=== PATIENT | female | born 1960 | race Caucasian/White ===

== ENCOUNTER 2020-10-06 10:22 | Outpatient (CLI) | payer OTHER, SELFPAY ==
--- NOTE | ~2020-10-06 | XR_ITS ---
EXAMINATION: XR chest 2V 10/06/2020 10:53 INDICATION: Shortness of breath PROCEDURE: 2 view chest COMPARISON: 07/31/2012 FINDINGS: The lungs are clear. The cardiomediastinal silhouette is within normal limits. There are no pleural effusions. There is no pneumothorax suspected. IMPRESSION: 1: NO ACUTE CARDIOPULMONARY DISEASE. Reviewed, dictated and finalized at location B.
[2020-10-06 11:08] LABS: Potassium 3.8 mmol/L (3.4-5.0)
[2020-10-06 11:13] LABS: Alanine Aminotransferase 30 U/L (4-35); Albumin Level 4.8 g/dL (3.5-5.1); Alkaline Phosphatase 169 U/L (38-126); Anion Gap 9 mmol/L (8-16); Aspartate Amino Transferase 29 U/L (14-36); Bilirubin,Total 0.6 mg/dL (0.2-1.3); Blood Urea Nitrogen 16 mg/dL (7-17); Calcium 9.8 mg/dL (8.4-10.2); Carbon Dioxide 31 mmol/L (22-30); Chloride 99 mmol/L (98-107); Estimated Glomerular Filt Rate > 60; Glucose 102 mg/dL (65-105); Sodium 139 mmol/L (137-145)
[2020-10-06 12:27] LABS: Hepatitis C Virus Antibody Negative (Negative)
== END 2020-10-06 10:23 | disposition home or self-care (01) ==
PROVIDERS: PCP Family Medicine; Visit Provider Family Medicine
DX: Z11.59 Encounter for screening for other viral diseases (principal); Z86.16 Personal history of COVID-19; R73.03 Prediabetes; E78.2 Mixed hyperlipidemia; K21.00 Gastro-esophageal reflux disease with esophagitis, without bleeding; Z78.0 Asymptomatic menopausal state; I10 Essential (primary) hypertension; R06.02 Shortness of breath; R60.9 Edema, unspecified
CPT/HCPCS: 36415; 71046; 80053; 82306; 82607; 83036; 86803

== ENCOUNTER 2020-10-07 14:54 | Outpatient (CLI) | payer OTHER, SELFPAY ==
[2020-10-11 12:48] LABS: Alkaline Phosphatase 153 U/L (37-153); Macrohepatic Isoenzymes 26 % (<=0)
== END 2020-10-07 14:55 | disposition home or self-care (01) ==
LOC: ANHLAB 14:56
PROVIDERS: PCP Family Medicine; Visit Provider Family Medicine
DX: R94.5 Abnormal results of liver function studies (principal)
CPT/HCPCS: 36415; 84075; 84080

== ENCOUNTER 2020-10-15 09:02 | Outpatient (CLI) | payer OTHER, SELFPAY ==
--- NOTE | ~2020-10-15 | US_ITS ---
EXAMINATION: US abdomen complete DATE: 10/15/2020 09:31 INDICATION: Abnormal liver function tests. TECHNIQUE: Multiple grayscale and Doppler ultrasound images of the abdomen were obtained. COMPARISON: None FINDINGS: Abdominal aorta is normal in caliber. The visualized portions of the head and body of the p ancreas are normal. There is diffuse hepatic steatosis with focal sparing at the gallbladder fossa. N o liver surface nodularity. The inferior vena cava is normal. There is normal flow in main portal vei n. The gallbladder is normal in size. No gallstones or gallbladder wall thickening. There was no sono graphic Yates sign. The common duct is normal and measures 5 mm. The spleen is normal in size. Calci fications in the spleen are consistent with old granulomatous disease. The kidneys are normal in size . IMPRESSION: 1. Diffuse hepatic steatosis. Reviewed, dictated and finalized at location A.
== END 2020-10-15 09:03 | disposition home or self-care (01) ==
PROVIDERS: PCP Family Medicine; Visit Provider Family Medicine
DX: R94.5 Abnormal results of liver function studies (principal); K76.0 Fatty (change of) liver, not elsewhere classified
CPT/HCPCS: 76700

== ENCOUNTER 2020-10-22 06:38 | Outpatient (CLI) | payer OTHER, SELFPAY ==
--- NOTE | 2020-10-22 06:59 | ECHO_ITS ---
Patient Info Name: Kiara De Leon Age: 60 years : 1960 Gender: Female Ht: 63 in Wt: 231 lbs BSA: 2.21 m2 HR: 67 bpm BP: 124 / 84 mmHg Technical Quality: Good Exam Date: 10/22/2020 7:10 AM Exam Location: [facility] Patient Status: Outpatient Admit Date: 10/22/2020 Staff Ordering Physician: Ruma Salcedo MD Plumbing Assembler: Marisa Leblanc RDCS Attending Provider: Ruma Salcedo MD Referring Physician: Denisse CONNER; Exam Type: CA echo doppler color flow Study Info Indications - SOB Complete two-dimensional, color flow and Doppler transthoracic echocardiogram is performed. Summary 1. Complete two-dimensional, color flow and Doppler transthoracic echocardiogram is performed. 2. Left ventricular chamber dimension is normal. 3. Left ventricular systolic function is normal, estimated at 55-60%. 4. The left ventricular diastolic function is grade I diastolic dysfunction. 5. E/e' 8 is minimally elevated. 6. Left atrial chamber dimension is mildly enlarged. 7. Right atrial chamber dimension is mildly enlarged. 8. There is mild aortic valve regurgitation. 9. The mitral valve has mildly calcified annulus. 10. There is trace tricuspid valve regurgitation. 11. No pulmonary hypertension, estimated pulmonary arterial systolic pressure is 21 mmHg. 12. There is trace pulmonic regurgitation. Left Ventricle E/e' 8 is minimally elevated. Left ventricular chamber dimension is normal. Left ventricular systolic function is normal, estimated at 55-60%. The left ventricular diastolic function is grade I diastolic dysfunction. Right Ventricle Right ventricular chamber dimension is normal. Right ventricular systolic function is normal. Left Atria Left atrial chamber dimension is mildly enlarged. Right Atria Right atrial chamber dimension is mildly enlarged. Aortic Valve The aortic valve is trileaflet. There is no aortic valve stenosis. There is mild aortic valve regurgitation. Pulmonic Valve There is trace pulmonic regurgitation. Mitral Valve The mitral valve has mildly calcified annulus. There is no mitral valve stenosis. There is no mitral valve regurgitation. Tricuspid Valve There is trace tricuspid valve regurgitation. No pulmonary hypertension, estimated pulmonary arterial systolic pressure is 21 mmHg. Pericardium/Pleural There is no pericardial effusion. Inferior Vena Cava Normal inferior vena cava with >50% collapse upon inspiration consistent with normal right atrial pressure, 5 mmHg. Aorta The aortic root size at the sinus of Valsalva is normal. Left Ventricular Outflow Tract Name Value Normal LVOT 2D LVOT Diameter 2.0 cm LVOT Doppler LVOT Peak Gradient 3 mmHg LVOT Mean Gradient 1 mmHg LVOT VTI 20 cm LVOT VTI/AV VTI Ratio 0.6 LVOT Stroke Volume 61 ml LVOT CO 3.4 l/min LVOT CI 1.5 l/min/m2 Pulmonic Valve
== END 2020-10-22 06:39 | disposition home or self-care (01) ==
PROVIDERS: PCP Family Medicine; Visit Provider Family Medicine
DX: R06.02 Shortness of breath (principal); R60.9 Edema, unspecified; Z86.16 Personal history of COVID-19; I34.0 Nonrheumatic mitral (valve) insufficiency; I35.1 Nonrheumatic aortic (valve) insufficiency
CPT/HCPCS: 93306

== ENCOUNTER 2022-02-10 13:42 | Outpatient (CLI) | payer OTHER, SELFPAY ==
--- NOTE | 2022-02-10 14:29 | ECG_ITS ---
Measurements Intervals [place] Rate: 70 P: 55 FL: 184 QRS: -26 QRSD: 106 T: 14 QT: 412 QTc: 446 Interpretive Statements SINUS RHYTHM BASELINE ARTIFACT LOW QRS VOLTAGE IN PRECORDIAL LEADS VOLTAGE CRITERIA FOR LVH CANNOT RULE OUT ANTERIOR MYOCARDIAL INFARCTION, OF INDETERMINATE AGE ABNORMAL ECG NO PREVIOUS ECG AVAILABLE FOR COMPARISON Electronically Signed On 02-10-2022 15:43:10 CDT by Jose Juan Ramos M.D.
[2022-02-10 15:25] LABS: Basophils Percent Auto 0.1 % (0.2-1.2); Eosinophils Absolute Auto 0.2 K/mm3 (0-0.3); Eosinophils Percent Auto 1.6 % (0-4.4); Hematocrit 41.9 % (37.0-47.0); Hemoglobin 13.3 g/dL (12.0-15.0); Immature Granulocyte Absolute 0.03 K/mm3 (0.00-0.031); Immature Granulocyte Percent A 0.3 % (0-0.5); Lymphocytes Percent Auto 34.9 % (18.3-44.2); Mean Corpuscular HGB Conc 31.7 g/dl (32-36); Mean Corpuscular Hemoglobin 26.9 pg (26-34); Mean Corpuscular Volume 84.6 fl (80-100); Mean Platelet Volume 8.4 fl (7.4-10.4); Monocytes Absolute Auto 0.6 K/mm3 (0.1-0.6); Monocytes Percent Auto 5.7 % (2.6-8.5); Neutrophils Absolute Auto 5.6 K/mm3 (1.3-6.7); Neutrophils Percent Auto 57.4 % (45.5-73.1); Platelet Count Result 302 k/mm3 (150-375); Red Blood Count 4.95 M/mm3 (4.2-5.4); Red Cell Distribution Width 14.8 % (11.5-14.5); White Blood Count 9.7 K/mm3 (4.5-10.0)
[2022-02-10 15:36] LABS: Prothrombin Time 12.4 Seconds (11.1-14.7)
[2022-02-10 15:37] LABS: Partial Thromboplastin Time 28.9 SECONDS (22.3-36.8)
[2022-02-10 15:40] LABS: Alanine Aminotransferase 25 U/L (6-35); Albumin Level 4.6 g/dL (3.5-5.1); Alkaline Phosphatase 120 U/L (38-126); Anion Gap 8 mmol/L (8-16); Aspartate Amino Transferase 25 U/L (14-36); Bilirubin,Total 0.3 mg/dL (0.2-1.3); Blood Urea Nitrogen 9 mg/dL (7-17); Calcium 9.9 mg/dL (8.4-10.2); Carbon Dioxide 37 mmol/L (22-30); Chloride 92 mmol/L (98-107); Estimated Glomerular Filt Rate > 60; Glucose 109 mg/dL (65-110); Potassium 3.4 mmol/L (3.4-5.0); Sodium 137 mmol/L (137-145)
== END 2022-02-10 13:43 | disposition home or self-care (01) ==
LOC: ANHSURGERY 13:47
PROVIDERS: PCP Family Medicine; Visit Provider Urology
DX: Z01.818 Encounter for other preprocedural examination (principal); I10 Essential (primary) hypertension; N81.10 Cystocele, unspecified; R94.31 Abnormal electrocardiogram [ECG] [EKG]
CPT/HCPCS: 36415; 80053; 85025; 85610; 85730; 86850; 86900; 86901; 87086; 87088; 93005

== ENCOUNTER 2022-02-21 00:39 | Day surgery (SDC) | payer OTHER, SELFPAY ==
--- NOTE | 2022-02-10 13:48 | PC.NURSE ---
PRE-OP INSTRUCTIONS, PLEASE READ CAREFULLY Report to the Outpatient Waiting Room, entrance under the green pavilion located off [facility], at time _0600_ on date _02/21/22_. OR Time: _0730_. - You and your visitor will be asked a series of questions to screen for COVID 19 for your protection. - Only one visitor is allowed at this time. - The patient visitor is requested to leave or wait in car when not with patient. - A mask is required within the hospital. Patients may have clear liquids (water, carbonated beverages, clear teas, apple juice) until 3 hours prior to surgery (0430 AM) with a maximum of 20 ounces. - No food from midnight until time of surgery Take the following medications with a SIP of water the morning of surgery: _ METOPROLOL, TYLENOL IF NEEDED_ Medications to discontinue per physician ___N/A__, Date to take last dose Please no make-up, nail hebrew, hairspray, perfume, deodorant, or body powder the day of surgery. No jewelry (including any body piercings) or valuables the day of surgery, leave them at home. Please take a shower or bath the night before, or the morning of, surgery with an antibacterial soap. Wear comfortable, loose fitting clothing. - Jewelry must be removed prior to entering the operating room. Rings and piercings that are not removed may be cut off. - The hospital will not accept responsibility for valuables. - Please leave all valuables, including medications, at home the day of surgery. If you are going home after surgery, a licensed bus driver supervisor must drive you home. - NO public transportation without another adult. - We recommend that an adult stay with you for 24 hours following discharge. - We also recommend that you do not drive, make important decision, drink alcoholic beverages, or take any drugs that were not prescribed by your health care provider for at least 24 hours after your discharge time. Follow any additional instructions given to you from your surgeon. If you or anyone in your household have experienced Covid symptoms in the past week, please notify your surgeon or the nurse liaison at the phone number below for possible testing. Instructions given to ____PT and asked if any additional questions and then verbalized understanding. Patient advised to call surgeon office or pre surgery nurse liaison [phone] if any additional questions.
[2022-02-10 14:11] VITALS: BP 146/82; PULSE 68; RESP 20; TEMP 37.2; O2SAT 95; BMI 38.4
--- NOTE | 2022-02-18 08:05 | PM.IMHP ---
H&P: HPI History of Present Illness Date/Time: 02/18/22 08:05 Chief Complaint: Pelvic organ prolapse Narrative: This is a 61-year-old female with a history of hysterectomy as well as prolapse repair in the past. This was done in 2017. She has recurrent vaginal vault prolapse. There is no stress incontinence. She desires correction Review of Systems Review of Systems: All systems reviewed & are unremarkable except as noted in HPI and below PMFSH Past Medical History Medical History Acute stress reaction Allergic rhinitis Bicipital tendinitis, right shoulder Dyskinesia of esophagus Neck strain Pain in right axilla Family History Family History Mother Diabetes mellitus Family history of cardiovascular disease Family history of kidney disease Grandparent Diabetes mellitus Cerebrovascular accident Family history of kidney disease Social History Social History Smoking status: Former smoker Tobacco type: cigarettes Second hand tobacco smoke exposure: No Additional smoking assessment comments: STATES SOCIAL SMOKER FOR COUPLE YEARS EARLY Alcohol intake: current Alcohol use details: STATES MAYBE 4-5 DRINKS A MONTH Substance use: never Substance use type: does not use Additional living arrangements comments: PT LIVES WITH BUDDY NOLAN JR [phone] Spiritual care concerns: No Meds Home Medications and Allergies Home Medications Medication Instructions Recorded Confirmed Type cholecalciferol (vitamin D3) 1,250 1,250 mcg PO .COMPLEX #6 caps 12/15/21 02/10/22 Rx mcg (50,000 unit) capsule acetaminophen 325 mg capsule 650 mg TID PRN Pain 02/10/22 02/10/22 History (Tylenol) atorvastatin 40 mg tablet 40 mg QAM 02/10/22 02/10/22 History hydrochlorothiazide 50 mg tablet 50 mg PO QAM 02/10/22 02/10/22 History metoprolol succinate 50 mg 50 mg QAM 02/10/22 02/10/22 History tablet,extended release 24 hr omeprazole 40 mg capsule,delayed 40 mg QAM 02/10/22 02/10/22 History release Allergies Allergy/AdvReac Type Severity Reaction Status Date / Time adhesive Allergy Unknown RASH Verified 02/10/22 14:07 Penicillins Allergy Unknown UNABLE TO Verified 02/10/22 14:07 RECALL chlorhexidine AdvReac Rash Verified 02/10/22 14:07 [From [facility]] Exam Narrative: Obese No acute distress Normal reading Alert orient x3 Vaginal wall prolapse at +5 Assessment and Plan Assessment and plan (1) Prolapse of vaginal vault after hysterectomy: Code(s): N99.3 - Prolapse of vaginal vault after hysterectomy Status: Acute Assessment and Plan: Plan for robotic colpopexy. Understands risks of bleeding, infection, diskitis, damage to surrounding organs, damage to the urinary tract, damage to the bowel, recurrence of prolapse, postoperative voiding dysfunction including incontinence and retention, dyspareunia, mesh related complications including exposure and extrusion. She agrees to proceed.
[2022-02-21] VITALS (17 sets, daily range): BP systolic 128–152; BP diastolic 70–95; PULSE 54–79; RESP 12–16; TEMP 36.2–37.1; O2SAT 91–99
[2022-02-21] MEDS: LACTATED RINGERS 1,000 ML 30 ML IV CONT ×2 (06:25→09:53)
--- NOTE | 2022-02-21 06:43 | WPDANESEPPF ---
Anes - Initial Pre Proc Eval Procedure: Operation Date: 02/21/22 07:30 Proposed Procedures p Robotic Sacrocolpopexy - Seun Davis MD s Urethral Sling - Seun Davis MD Date/Time: 02/21/22 06:43 Surgeon: Seun Davis MD Pre Op Diagnosis: prolapse vaginal vault after hyst, stress incont Patient Data Age: 61 Gender: F Height: 1.63 m Weight: 101.6 kg Last Vital Signs Temp 37.2 C 02/10/22 14:11 Pulse 68 02/10/22 14:11 Resp 20 02/10/22 14:11 BP 146/82 H 02/10/22 14:11 Pulse Ox 95 02/10/22 14:11 O2 Del Method Room Air 02/10/22 14:11 Allergies Allergy/AdvReac Type Severity Reaction Status Date / Time adhesive Allergy Unknown RASH Verified 02/10/22 14:07 Penicillins Allergy Unknown UNABLE TO Verified 02/10/22 14:07 RECALL chlorhexidine AdvReac Rash Verified 02/10/22 14:07 [From [facility]] Home Medications Medication Instructions Recorded Confirmed Type cholecalciferol (vitamin D3) 1,250 1,250 mcg PO .COMPLEX #6 caps 12/15/21 02/10/22 Rx mcg (50,000 unit) capsule acetaminophen 325 mg capsule 650 mg TID PRN Pain 02/10/22 02/10/22 History (Tylenol) atorvastatin 40 mg tablet 40 mg QAM 02/10/22 02/10/22 History hydrochlorothiazide 50 mg tablet 50 mg PO QAM 02/10/22 02/10/22 History metoprolol succinate 50 mg 50 mg QAM 02/10/22 02/10/22 History tablet,extended release 24 hr omeprazole 40 mg capsule,delayed 40 mg QAM 02/10/22 02/10/22 History release Patient hx anesthesia problems: none Family hx anesthesia problems: none Results Review: All pre-operative results and documents have been reviewed as part of the pre-operative evaluation. [facility] Past Medical History Medical History Acute stress reaction Allergic rhinitis Bicipital tendinitis, right shoulder Dyskinesia of esophagus Neck strain Pain in right axilla Family History Family History Mother Diabetes mellitus Family history of cardiovascular disease Family history of kidney disease Grandparent Diabetes mellitus Cerebrovascular accident Family history of kidney disease Social History Social History Smoking status: Former smoker Tobacco type: cigarettes Second hand tobacco smoke exposure: No Additional smoking assessment comments: STATES SOCIAL SMOKER FOR COUPLE YEARS EARLY Alcohol intake: current Alcohol use details: STATES MAYBE 4-5 DRINKS A MONTH Substance use: never Substance use type: does not use Living arrangements: with family Additional living arrangements comments: PT LIVES WITH SON AN BANEGAS [phone] Spiritual care concerns: No Anes - Eval Final PreProcedure Day of Procedure 02/21/22 06:43 Patient weight: obese Heart: regular rate and rhythm Lungs: clear to auscultation Airway: Mallampati scale class II and other (dentures) Last oral intake: >/= 8 hours ASA classification: III Emergent: no Anesthetic plan: proceed Anesthesia type and monitoring: general ETT and standard monitoring Results Review: All pre-operative results and documents have been reviewed as part of the pre-operative evaluation. Informed Consent: The patient's anesthetic plan and its attendant risks and benefits were discussed with the patient/family/POA. Questions were solicited and answers provided to the satisfaction of the patient/family/POA.
--- NOTE | 2022-02-21 07:11 | WPDHPUPDATE1 ---
History and Physical Update Update Date/Time: 02/21/22 07:11 History and Physical has been reviewed, including an updated exam of the patient. There are NO changes in the patient's condition. Risks, benefits, and alternatives have been discussed and questions answered. Patient agrees to proceed with procedure.
[2022-02-21] MEDS: ceFAZolin 2 GM/D5W 50 ML 2 GM/50 ML BAG IVPB (07:28)
--- NOTE | 2022-02-21 09:39 | P.OP_ITS ---
Procedure Note - Detailed Date of Procedure 02/21/22 Pre-op Diagnosis prolapse vaginal vault after hysterectomy Post-op Diagnosis Same Procedure Performed Robotic assisted laparoscopic sacral colpopexy Cystoscopy Surgeon Seun Davis MD Anesthesia General Indications This is a woman with post hysterectomy vaginal vault prolapse. She desires surgical correction. She has no stress incontinence by history or urodynamics. She understands risks of bleeding, infection, diskitis, damage to surrounding organs, damage to the bowel or urinary tract, recurrence of prolapse, dyspareunia, vaginal mesh exposure, urinary tract mesh exposure, obstructive voiding requiring secondary procedure, hip and leg pain, postoperative incontinence which may require another procedure and other perioperative intraoperative and postoperative complications. She is to proceed Findings See below Description of Procedure She was correctly identified. Informed consent obtained. She is brought to the operating room. She was given general anesthesia. She was placed in the lithotomy position. She was given appropriate perioperative antibiotics. She was prepped and draped in a sterile fashion. A time-out performed. I anesthetized the skin 3 fingerbreadths cephalad to the umbilicus. I incised the skin. I located the fascia. I grasped the fascia with Clemencia clamps. I incised the fascia sharply and a Brown type technique. I placed Vicryl sutures for later fascial closure. I placed a midline trocar. Under direct vision placed 2 additional trocars in the right upper quadrant and 2 additional trocars in the left upper quadrant. She was placed in steep Trendelenburg. The robot was docked. I sat at the console. With the Sizer in the vagina and created a plane on the anterior and posterior vaginal wall for several cm taking great care not to injure the vagina, bladder, or rectum. I introduced the mesh into the vagina. I sewed the anterior leaflet of mesh on the anterior vaginal wall with 8 sutures of 2-0 [place]Marcus and posterior leaf of the mesh on the posterior vaginal wall with 8 sutures of 2 0 [place]-Marcus taking great care not to go through and through. I then opened up the peritoneum over the sacral promontory. I carried this incision into the cul-de-sac. I freed up the edges for later retroperitonealization of the mesh. I located the anterior longitudinal ligament of the sacrum. I cleaned off any fatty tissues. I then tensioned my mesh appropriately. I did a vaginal exam to ensure prolapse reduction without undue tension. I then sewed the proximal leaflet of mesh onto the ligament with 4l sutures of 2 0 [place]-Marcus. I then used a 2 0 Monocryl to meticulously retroperitonealized all mesh. I allowed the colon to go back into its normal anatomic location. There is no sign of impingement. He had an was then exited. Fascial sutures were closed. The wounds were all irrigated and closed with 4 O Monocryl and skin glue. She was then repositioned. I then performed cystoscopy. The bladder showed no evidence of surgical artifact or tumor. Both ureters were seen to excrete clear yellow urine. . She was awakened and transferred to the PACU in stable condition. Implants Sacral colpopexy mesh Estimated Blood Loss 10 Drains No Packing No Pathology None sent Complications No immediate complications Condition Stable Disposition PACU
[2022-02-21] MEDS: ONDANSETRON INJ 4 MG/2 ML VIAL IV PUSH (10:30)
[2022-02-21] MEDS: diphenhydrAMINE HCl INJ 50 MG/ML VIAL 12.5 MG IV PUSH (11:44)
[2022-02-21] MEDS: KCL 20 MEQ/D5/0.45% SOD CHL 1,000 ML 100 ML IV CONT (12:51)
[2022-02-21] MEDS: KETOROLAC 15 MG/ML VIAL (*BKC) IV PUSH (15:34)
--- NOTE | 2022-02-21 17:13 | PC.NURSE ---
Pt. states nausea is better and she would like solid food for dinner, dinner orders have already been taken for the night. I got her a turkey sandwich, chips and fruit.
[2022-02-21] MEDS: ZOLPIDEM TARTRATE (*CRX) 5 MG TABLET PO (19:12)
[2022-02-22] MEDS: KETOROLAC 15 MG/ML VIAL (*BKC) IV PUSH (00:11)
[2022-02-22] MEDS: HYDROcodone/acetaminophen (*CRX) 5-325 MG TABLET 1 TAB PO (00:11)
[2022-02-22] MEDS: ONDANSETRON INJ 4 MG/2 ML VIAL IV PUSH (02:08)
[2022-02-22 05:00] VITALS: BP 125/64; PULSE 82; RESP 16; TEMP 36.6; O2SAT 97
[2022-02-22 08:35] VITALS: BP 130/64; PULSE 74; RESP 16; TEMP 36.2; O2SAT 96
--- NOTE | 2022-02-22 08:41 | WPDANESPN ---
Anes - Prog Note Post-Op Date/Time: 02/22/22 08:41 Cardiovascular status: normal Respiratory status: normal Airway patency: baseline Mental status: baseline Post-Op hydration status: normal Vital Signs: Last Vital Signs Temp 36.6 C 02/22/22 05:00 Pulse 82 02/22/22 05:00 Resp 16 02/22/22 05:00 BP 125/64 02/22/22 05:00 Pulse Ox 97 02/22/22 05:00 O2 Del Method Room Air 02/22/22 07:00 O2 Flow Rate 3 02/21/22 15:40 Pain Score (VAS): 07/19 I/O: Intake & Output 02/21/22 02/22/22 02/22/22 23:59 07:59 15:59 Intake Total 600 1000 Output Total 300 600 Balance 300 400 Post-procedural complaints: none Patient Feedback: Patient satisfied with anesthetic care.
[2022-02-22] MEDS: ATORVASTATIN 40 MG TABLET BY MOUTH (08:48)
[2022-02-22] MEDS: ENOXAPARIN 30 MG/0.3 ML SYRINGE SUB-Q (08:48)
[2022-02-22] MEDS: DOCUSATE SODIUM 100 MG CAPSULE PO (08:48)
[2022-02-22] MEDS: hydroCHLOROthiazide 25 MG TABLET 50 MG PO (08:49)
[2022-02-22] MEDS: levoFLOXacin 500 MG TABLET PO (08:49)
[2022-02-22 08:50] VITALS: PULSE 74
[2022-02-22] MEDS: METOPROLOL SUCCINATE EXT REL 50 MG TABCR BY MOUTH (08:50)
[2022-02-22] MEDS: PANTOPRAZOLE 40 MG TABLET BY MOUTH (08:50)
--- NOTE | 2022-02-22 10:34 | WPDUROPN2 ---
Progress Note: A&P Assessment and Plan (1) Prolapse of vaginal vault after hysterectomy: Code(s): N99.3 - Prolapse of vaginal vault after hysterectomy Status: Acute Assessment and Plan: Ok to discharge patient home when she is able to urinate and bladder scan is <300cc. If >300cc call the office and replace gutierrez catheter with at 16fr catheter. She will also need to eat and not experience nausea before discharge. Subjective Subjective Date/Time Seen: 02/22/22 10:34 Robotic Assisted Laparoscopic Sacral Colpopexy The patient is doing very well post operatively. She is tolerating pain and her diet. Gutierrez has been removed and she is waiting to urinate. Post Op day: 1 Review of Systems Respiratory: Respiratory: Reports no additional respiratory complaints Gastrointestinal: Gastrointestinal: Reports abdominal pain (at inicisions only), Denies nausea and Denies vomiting Genitourinary: Genitourinary: Denies hematuria, Denies nocturia, Denies flank pain, Denies urinary incontinence, Denies urinary hesitancy and Denies urinary urgency Exam Const: General: comfortable Resp: Effort & Inspection: normal respiratory effort Cardio: Rate: regular rate GI: GI Palp: Yes Soft to palpation and Yes Tenderness to palpation present (GI) (at inicisions only, all are well approximated, no drainage, redness or smooth) : General: Yes no CVA tenderness Extrem: Right lower extremity: no edema Left lower extremity: no edema Objective Data Vital Signs Vital Signs: Vital Signs - 24 hr 02/21/22 10:35 02/21/22 10:50 02/21/22 11:05 Temperature Pulse Rate 61 57 L 58 L Respiratory Rate 14 14 12 Blood Pressure 136/87 145/83 H 132/95 H Pulse Oximetry 91 99 96 Oxygen Delivery Nasal Cannula Nasal Cannula Nasal Cannula Oxygen Flow Rate 4 4 3 02/21/22 11:20 02/21/22 11:35 02/21/22 11:30 Temperature Pulse Rate 57 L 55 L 55 L Respiratory Rate 12 14 14 Blood Pressure 146/70 H 149/74 H 142/74 H Pulse Oximetry 94 93 94 Oxygen Delivery Nasal Cannula Nasal Cannula Nasal Cannula Oxygen Flow Rate 2 2 3 02/21/22 11:45 02/21/22 12:00 02/21/22 12:08 Temperature Pulse Rate 58 L 54 L 55 L Respiratory Rate 14 16 16 Blood Pressure 150/77 H 151/81 H 141/79 H Pulse Oximetry 98 94 97 Oxygen Delivery Nasal Cannula Nasal Cannula Nasal Cannula Oxygen Flow Rate 3 3 3 02/21/22 12:30 02/21/22 12:17 02/21/22 15:40 Temperature 97.1 F L Pulse Rate 62 62 68 Respiratory Rate 16 16 14 Blood Pressure 135/82 Pulse Oximetry 98 98 94 Oxygen Delivery Nasal Cannula Nasal Cannula Oxygen Flow Rate 3 3 02/21/22 15:40 02/21/22 19:15 02/22/22 05:00 Temperature 97.6 F 98.3 F 97.9 F Pulse Rate 68 79 82 Respiratory Rate 14 16 16 Blood Pressure 147/90 H 152/89 H 125/64 Pulse Oximetry 94 97 97 Oxygen Delivery Oxygen Flow Rate 02/22/22 07:00 02/22/22 08:50 02/22/22 08:35 Temperature 97.2 F L Pulse Rate 74 74 Respiratory Rate 16 Blood Pressure 130/64 Pulse Oximetry 96 Oxygen Delivery Room Air Oxygen Flow Rate Intake/Output Intake/Output: Intake & Output 02/19/22 02/20/22 02/21/22 02/22/22 23:59 23:59 23:59 23:59 Intake Total 1000 1000 Output Total 400 600 Balance 600 400 Meds/Results Medications: Active Medications Generic Name Dose Route Start Last Admin Trade Name Freq PRN Reason Stop Dose Admin Acetaminophen 650 mg 02/21/22 12:12 Acetaminophen 325 Mg Tablet PO Q4H PRN Mild Pain (1-3) or Fever Hydrocodone Bitart/Acetaminophen 1 tab 02/21/22 12:12 02/22/22 00:11 Hydrocodone/Acetaminophen (*Crx) 5-325 Mg Tablet PO 1 tab Q4H PRN Administration Pain Rated 4-5 Atorvastatin Calcium 40 mg 02/22/22 09:00 02/22/22 08:48 Atorvastatin 40 Mg Tablet BY MOUTH 40 mg QAM VINCENT Administration Diphenhydramine HCl 25 mg 02/21/22 12:12 Diphenhydramine Hcl Inj 50 Mg/Ml Vial IV PUSH Q6H PRN Itching Docusate Sodium 100 mg
[2022-02-22] MEDS: ACETAMINOPHEN 325 MG TABLET 650 MG PO (11:47)
== END 2022-02-22 12:37 | disposition home or self-care (01) ==
LOC: ANHSURGERY 10:04 → ANHOB2 12:14
PROVIDERS: PCP Family Medicine; Visit Provider Urology
PROC: (CPT 57425; principal; 2022-02-21 07:30)
DX: N99.3 Prolapse of vaginal vault after hysterectomy (principal); N39.3 Stress incontinence (female) (male); Z87.891 Personal history of nicotine dependence; E66.9 Obesity, unspecified; Z68.38 Body mass index [BMI] 38.0-38.9, adult
CPT/HCPCS: 57425; S2900; 36415; 80053; 85025; 85610; 85730; 86850; 86900; 86901; 87086; 87088; 93005; 99199; A9270; C1758; C1769; C1781; C9290; J0330; J0690; J1170; J1200; J1650; J1885; J2250; J2405; J2704; J2710; J3010; J3480; J7030; J7120

== ENCOUNTER → 2022-05-13 15:19 | Outpatient (CLI) | payer OTHER, SELFPAY ==
--- NOTE | ~2022-05-13 | DEXA_ITS ---
Bone Density Report Name: MARII MAXWELL Age: 61 Sex: Female Ethnicity: White Date of : 1960 Indication: postmenopausal; screening for osteoporosis; height loss; prior fracture; hysterectomy; Referring Provider: CHOCO MOSLEY Study: Bone densitometry was performed. Exam Date: May 13, 2022 Accession number: [id number] Bone Density: Region BMD T-score Z-score Classification AP Spine (L1-L4) 0.894 -1.4 0.3 Osteopenia Femoral Neck (Left) 0.694 -1.4 0.1 Osteopenia Total Hip (Left) 0.850 -0.8 0.4 Normal Femoral Neck (Right) 0.721 -1.1 0.3 Osteopenia Total Hip (Right) 0.842 -0.8 0.3 Normal Total Hip Mean 0.846 -0.8 0.4 Normal World Health Organization criteria for BMD impression classify patients as: Normal (T-score at or above -1.0), Osteopenia (T-score between -1.0 and -2.5), or Osteoporosis (T-score at or below -2.5). 10-year Fracture Risk(1): Major Osteoporotic Fracture 13% Hip Fracture 1.1% Reported Risk Factors: [place] (), Neck BMD=0.694, BMI=39.2, previous fracture (1) FRAX(R) Version 3.08. Fracture probability calculated for an untreated patient. Fracture probability may be lower if the patient has received treatment. Clinical Information Provided by Patient: Has had a low trauma fracture Has used the following medications: Vitamin D Has the following medical conditions: Hysterectomy Patient maximum height was 64 Menopause Age: 44 No regular weight bearing exercise Does not regularly consume dairy products Drinks caffeinated beverages Onset of menses at age 10 Number of children 2 Impression: The patient has low bone mass, based on the Total Spine T-score. The patient has an estimated ten-year risk of hip fracture of 1.1% and an estimated ten-year risk of major fracture of 13%, based on the WHO FRAX algorithm. The patient has risk factors, including: previous fracture. Discussion: BONE DENSITY IS LOW AT ONE OR MORE SKELETAL SITES. This patient's lowest T-score is low at one or more skeletal sites. It meets the World Health Organization's (WHO) criteria for ?low bone mass? (T-score between -1.0 and -2.5). The patient's 10-year risk of fracture as calculated by FRAX is less than the threshold where pharmacological therapy is recommended by the National Osteoporosis Foundation (NOF). However, all treatment decisions require clinical judgment and consideration of individual patient factors, including patient preferences, comorbidities, previous drug use, risk factors not captured in the FRAX model (e.g., frailty, falls, vitamin D deficiency, increased bone turnover, interval significant decline in bone density) and possible under or overestimation of fracture risk by FRAX. The patient should follow a healthful lifestyle (good nutrition with adequate calcium and vitami
== END ==
PROVIDERS: PCP Family Medicine; Visit Provider Family Medicine
DX: Z00.00 Encounter for general adult medical examination without abnormal findings (principal); Z78.0 Asymptomatic menopausal state; M85.88 Other specified disorders of bone density and structure, other site; M85.852 Other specified disorders of bone density and structure, left thigh; M85.851 Other specified disorders of bone density and structure, right thigh
CPT/HCPCS: 77080

== ENCOUNTER 2022-05-30 17:07 | Emergency (ER) | payer OTHER, SELFPAY ==
--- NOTE | 2022-05-30 17:14 | ED.URI ---
HPI - URI/Sore Throat General Chief Complaint: Upper Respiratory Infection Stated Complaint: Cough,Congestion Time Seen by Provider: 05/30/22 17:14 Source: patient and RN notes reviewed History of Present Illness HPI Narrative: Patient is a 61-year-old female who presents to the Urgent Care with complaints of cough and congestion with intermittent headaches. Patient states that it started last and she has been taking NyQuil and Mucinex. Patient denies any fever, nausea, vomiting, shortness of breath or sore throat. Denies any ill exposures. States that she has had negative COVID test at home. Other acute complaints. No acute distress noted. Patient aware of plan of care. Some parts of this dictation were generated by voice recognition software and may contain typographical and/or grammatical inaccuracies. Related Data Home Medications Medication Instructions Recorded Confirmed acetaminophen 325 mg capsule 650 mg TID PRN Pain 02/10/22 05/30/22 (Tylenol) atorvastatin 40 mg tablet 40 mg QAM 02/10/22 05/30/22 hydrochlorothiazide 50 mg tablet 50 mg PO QAM 02/10/22 05/30/22 metoprolol succinate 50 mg 50 mg QAM 02/10/22 05/30/22 tablet,extended release 24 hr omeprazole 40 mg capsule,delayed 40 mg QAM 02/10/22 05/30/22 release Allergies Allergy/AdvReac Type Severity Reaction Status Date / Time adhesive Allergy Unknown RASH Verified 05/30/22 17:18 Penicillins Allergy Unknown UNABLE TO Verified 05/30/22 17:18 RECALL chlorhexidine AdvReac Rash Verified 05/30/22 17:18 [From [facility]] Review of Systems Review of Systems: CONSTITUTIONAL: Denies fever, chills, or sweats. EYES: Denies visual changes, redness, or discharge. ENT: Reports of congestion, postnasal drainage CARDIOVASCULAR: Denies chest pain, palpitations, or edema. RESPIRATORY: Reports of loose nonproductive cough without dyspnea GASTROINTESTINAL: Denies abdominal pain, nausea, vomiting, or diarrhea. GENITOURINARY: Denies dysuria or hematuria. SKIN: Denies rash or itching. MUSCULOSKELETAL: Denies back pain, joint pain, or myalgia. NEUROLOGIC: Reports of headache All other systems reviewed are negative, except as documented in HPI. [facility] Past Medical History Medical History Acute stress reaction Allergic rhinitis Bicipital tendinitis, right shoulder Dyskinesia of esophagus Neck strain Pain in right axilla Family History Family History Mother Diabetes mellitus Family history of cardiovascular disease Family history of kidney disease Grandparent Diabetes mellitus Cerebrovascular accident Family history of kidney disease Social History Social History Smoking status: Former smoker Tobacco type: cigarettes Second hand tobacco smoke exposure: No Additional smoking assessment comments: STATES SOCIAL SMOKER FOR COUPLE YEARS EARLY 20'S Alcohol intake: current Alcohol use details: STATES MAYBE 4-5 DRINKS A MONTH Substance use: never Substance use type: does not use Additional living arrangements comments: PT LIVES WITH SON AN BANEGAS [phone] Spiritual care concerns: No Comments At the time of my signature, I reviewed and agree with the nursing past medical, surgical, social, and family history. There is no relevant family history pertinent to the patient complaint. Exam Narrative: GENERAL: This is a well-nourished, well-developed patient, in no apparent distress. HEAD: normocephalic, atraumatic. EYES: PERRL. Sclera clear/white. Vision is grossly intact. EARS: External ears normal, auditory canals clear and without drainage, TMs normal without perforation. Hearing grossly intact. NOSE: External nose normal with no obvious nasal discharge. Bilateral erythema nares with clear rhinorrhea THROAT: Mucous membranes moist, posterior pharynx clear. Mod
[2022-05-30 17:19] VITALS: BP 127/81; PULSE 97; RESP 16; TEMP 36.6; O2SAT 98
== END 2022-05-30 17:43 | disposition home or self-care (01) ==
PROVIDERS: Emergency Provider Nurse Practitioner Family; PCP Family Medicine
DX: J40 Bronchitis, not specified as acute or chronic (principal); Z87.891 Personal history of nicotine dependence
CPT/HCPCS: 99213; G0463

== ENCOUNTER → 2022-07-30 10:00 | Outpatient (CLI) | payer OTHER, SELFPAY ==
--- NOTE | ~2022-07-30 | MM_ITS ---
EXAMINATION: MM screening chase BI w michael HISTORY: Screening mammogram TECHNIQUE: Craniocaudal and mediolateral oblique 3-D tomosynthesis images were obtained and synthetic 2-D images were generated. CAD analysis was submitted and interpreted. COMPARISON: September 01, 2018, August 23, 2016 bilateral screening mammogram examinations BREAST PARENCHYMAL COMPOSITION: There are scattered areas of fibroglandular density. FINDINGS: There is no evidence of suspicious mass, calcification, or architectural distortion to sugg est malignancy in either breast. There has been no suspicious interval change. IMPRESSION: 1. No mammographic evidence of malignancy. 2. Recommend routine screening mammography in one year. BI-RADS Category 1: Negative... Reviewed, dictated and finalized at location A. [employer] OF [employer]LL[employer]
== END ==
PROVIDERS: PCP Family Medicine; Visit Provider Family Medicine
DX: Z12.31 Encounter for screening mammogram for malignant neoplasm of breast (principal)
CPT/HCPCS: 77063; 77067

== ENCOUNTER 2022-12-09 09:19 | Outpatient (RCR) | payer OTHER, SELFPAY ==
--- NOTE | 2022-12-09 11:55 | PTOPEVAL1 ---
Assessment and note entered by Halina Akhtar, PT Evaluation Information Assessment Status Evaluation Diagnosis anterior dislocation of L shoulder Onset 11/27/22 Subjective Information Patient referred due to L shoulder anterior dislocation and complete tear of rotator cuff. Patient is to avoid external rotation at this time . Patient has MRI next week to assess rotator cuff tear. Patient currently rating pain as 3/10 in L shoulder. Son resides with patient and is assisting patient with dressing and ADLs currently Reported Pain Level Pain Score 3: Self Report Additional Pain Score Comments patient reports pain in L deltoid region Assessment PT Clinical Summary Patient is 62 year old female referred to physical therapy following a fall on L shoulder resulting in anterior dislocation and complete tear of rotator cuff. Patient has MRI scheduled for 12/15 and will have updated plan of care with physician at that time. Patient currently presents with decreased active and passive range of motion LUE, decreased strength LUE 2+/5 grossly, postural impairments, edema, and pain rated as 3/10 in L shoulder. Patient would benefit from skilled therapy services 1-2x/wk for 4 wks to improve AROM /PROM L shoulder, strengthening, postural exercises, and pain management to improve ability to perform daily tasks at home. Plan of care is continent on further imaging/if surgical intervention is required. Plan of Care Interventions Electrical Stimulation,Gait Training,Hot Pack/Cold Pack,Manual Therapy,Neuro Re-education,Patient/ Caregiver Education,Therapeutic Activities, Therapeutic Exercise,Ultrasound Other Interventions taping, cupping, IASTM PT Services Indicated Yes Treatment Frequency and 1-2x/wk for 4 weeks Duration These treatments will address the objective and functional deficits as defined above. The patient will be advanced safely and appropriately in order for the patient to progress towards his/her prior level of function. Additional exercises will be introduced and as well as a comprehensive home exercise program upon discharge, if needed, ?to ensure carryover of functional gains achieved in the clinic. This treatment plan has been reviewed and agreement upon by the patient.
--- NOTE | 2022-12-09 11:59 | OPREHPOC ---
Outpatient Therapy Plan of Care This is a Multidisciplinary Plan of Care that may contain components documented by all disciplines (PT, OT, and ST.) PT Problem 1 PT Problem #1 Knowledge Deficit PT Goal 1 Goal Patient will demonstrate independence with home exercise program PT Problem 2 PT Problem #2 Pain PT Goal 1 Goal Patient will report L shoulder pain as 1/10 PT Problem 3 PT Problem #3 Impaired Range of Motion PT Goal 1 Goal 1. Patient will perform L shoulder flexion to 90 degrees without substitution 2. Patient will perform L shoulder scaption to 90 degrees without substitution. PT Problem 4 PT Problem #4 Impaired Strength PT Goal 1 Goal 1. Patient will demonstrate L shoulder flexion strength 3/5 contigent on updated surgical needs 2. Patient wll demonstrate L shoulder internal rotation strength 3/5 contigent on updated surgical needs
--- NOTE | 2022-12-13 13:59 | PCPTNOTE ---
Patient called & cancelled scheduled appointment this date, did not leave a reason.
--- NOTE | 2023-02-02 14:05 | PCPTNOTE ---
Addendum entered by Halina Akhtar, PT 02/02/23 16:03: Patient did not return following PT evaluation and ended up returning to PT following surgery for new evaluation with new v number. DC from original therapy at this time. Original Note: Patient did return to PT following initial evaluation. DC from PT at this time. Attempted to call patient with no answer.
== END 2023-02-03 07:38 | disposition home or self-care (01) ==
LOC: ANHPT 09:19
PROVIDERS: PCP Family Medicine; Visit Provider Physician Assistant
DX: S43.015D Anterior dislocation of left humerus, subsequent encounter (principal); S46.012D Strain of muscle(s) and tendon(s) of the rotator cuff of left shoulder, subsequent encounter; M19.012 Primary osteoarthritis, left shoulder
CPT/HCPCS: 97110; 97140; 97162

== ENCOUNTER 2022-12-15 08:41 | Outpatient (CLI) | payer OTHER, SELFPAY ==
--- NOTE | ~2022-12-15 | MR_ITS ---
MRI of the left shoulder Technique: Axial proton-density fat-sat images, coronal proton density fat-sat and T2 fat-sat images, and sagittal T1-weighted and T2 fat-sat images were acquired. Clinical History: Dislocation Findings: There is mild to moderate degenerative change at the AC joint. Small subacromial spur prese nt. Coracoclavicular, coracoacromial, and coracohumeral ligaments appear intact. There are complete, full-thickness tears involving the entirety of the supraspinatus and infraspinatu s tendons, which are retracted approximately to the level of the glenohumeral joint space. Fluid-fill ed gap measures up to approximately 2.8 x 3.5 cm in extent. Subscapularis tendon is probably intact w ith moderate tendinosis. Tendon of the long head of the biceps is intact. No definite labral tear identified. Inferior glenohumeral ligament is intact. There is large glenohumeral joint effusion passing through the rotator cuff defect into the subacromial/subdeltoid bursa. Questionable loose body in the axillar y pouch of the glenohumeral joint. Humeral head is high riding. No significant degenerative change of the humeral head. There is marrow edema extensively at the greater tuberosity, suggestive of contusi on and/or enthesopathic change. No definite fracture seen. No muscle atrophy or edema. Impression: Complete, full-thickness tears of the supraspinatus and infraspinatus tendons, as detailed above. Large glenohumeral joint effusion with questionable loose body in the axillary pouch. High riding humeral head. Probable bone contusion versus enthesopathic change at the greater tuberosi ty. No definite fracture seen. Tendinosis of the subscapularis tendon. Reviewed, dictated and finalized at location . Impression: Complete, full-thickness tears of the supraspinatus and infraspinatus tendons, as detailed above. Large glenohumeral joint effusion with questionable loose body in the axillary pouch. High riding humeral head. Probable bone contusion versus enthesopathic change a t the greater tuberosity. No definite fracture seen. Tendinosis of the subscapularis tendon.
== END 2022-12-15 08:42 | disposition home or self-care (01) ==
PROVIDERS: PCP Family Medicine; Visit Provider Physician Assistant
DX: M19.012 Primary osteoarthritis, left shoulder (principal); S43.015S Anterior dislocation of left humerus, sequela; S46.012A Strain of muscle(s) and tendon(s) of the rotator cuff of left shoulder, initial encounter; M25.412 Effusion, left shoulder
CPT/HCPCS: 73221

== ENCOUNTER 2023-04-07 10:30 | Outpatient (RCR) | payer OTHER, SELFPAY ==
[2023-01-17 15:30] VITALS: BP_SYST 90
--- NOTE | 2023-01-17 16:18 | PTOPEVAL1 ---
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 told her to do pendulum exercises, have not been moving shoulder much due to pain; ACTIVITY; prior to fall- active and no limitations, live alone; has local family assist PRN; is R handed; Reported Pain Level Pain Score Self Report Additional Pain Score Comments pain range in the past week: 0-7/10; decrease pain: arm at side and not move shoulder; have prescription pain meds, take PRN, not during work day; increase pain: moving shoulder; Assessment PT Clinical Summary Heather has the diagnosis of L shoulder surgery. Orders are for pre op visit and continue treatment 5-7 days after her surgery, scheduled 01-24-23. Educated pt and discussed on protocol post op: sling use, with support to wrist, support to arm with pillow, ice for pain, perform active hand and wrist motions, sleep in recliner, post op protocol with progression of activity from passive -active/assist to active exercise; HEP to perform prior to surgery: pendulum and cane supine exercises. Skilled PT services to continue post op to follow activity per protocol: modalities PRN for pain control and education for home exercises. Plan of Care Interventions Electrical Stimulation,Hot Pack/Cold Pack,Manual Therapy,Neuro Re-education,Patient/Caregiver Education,Therapeutic Activities,Therapeutic Exercise,Ultrasound,Other Other Interventions desmond, GERARD PT Services Indicated Yes Treatment Frequency and 0-2x/wk for 8 weeks; pre op education completed; Duration start treatment after surgery 01-24-23 These treatments will address the objective and functional deficits as defined above. The patient will be advanced safely and appropriately in order for the patient to progress towards his/her prior level of function. Additional exercises will be introduced and as well as a
--- NOTE | 2023-01-20 08:21 | OPREHPOC ---
Outpatient Therapy Plan of Care This is a Multidisciplinary Plan of Care that may contain components documented by all disciplines (PT, OT, and ST.) PT Problem 1 PT Problem #1 Knowledge Deficit PT Goal 1 Goal 1* pt indep with HEP PT Problem 2 PT Problem #2 Pain PT Goal 1 Goal 1* pt report pain rating at worst of 6/10 2* pt report with sleeping, awaken 2x/night due to shoulder pain PT Problem 3 PT Problem #3 Impaired Range of Motion PT Goal 1 Goal supine passive ROM of L shoulder: (NO IR behind the back) 1* scaption 140' 2* ER with elbow at side 40' 3* abduction 80'- without rotation PT Problem 4 PT Problem #4 Impaired Strength PT Goal 1 Goal HOLD-- no strengthening per protocol until week 6
[2023-03-16 11:05] VITALS: BP_SYST 105
--- NOTE | 2023-03-16 11:44 | OPREHPOC ---
Outpatient Therapy Plan of Care This is a Multidisciplinary Plan of Care that may contain components documented by all disciplines (PT, OT, and ST.) PT Problem 1 PT Problem #1 Knowledge Deficit PT Goal 1 Goal 1* pt indep with HEP Progress Met Comment 03-16-23 progress met goal continue to progress HEP and education PT Problem 2 PT Problem #2 Pain PT Goal 1 Goal 1* pt report pain rating at worst of 6/10 2* pt report with sleeping, awaken 2x/night due to shoulder pain Progress Met Comment 03-16-23 progress met goals NEW GOALS 1* pain rating 2/10 at worst PT Problem 3 PT Problem #3 Impaired Range of Motion PT Goal 1 Goal supine passive ROM of L shoulder: (NO IR behind the back) 1* scaption 140' 2* ER with elbow at side 40' 3* abduction 80'- without rotation Progress Met Comment 03-16-23 progress met goals NEW GOALS: active ROM of L shoulder in standing 1* flexion 140' 2* abduction 130' 3* ER- palm to back of head 4* IR- palm to above waist PT Problem 4 PT Problem #4 Impaired Strength PT Goal 1 Goal HOLD-- no strengthening per protocol until week 6 Comment 03-16-23 progress NEW GOALS: active L shoulder in standing, 10 reps through available ROM 1* flexion 2* abduction 3* IR 4* ER
--- NOTE | 2023-03-16 11:45 | PTOPPROG ---
Assessment and note entered by Rosalva Sheridan, PT Evaluation Information Assessment Status Progress Diagnosis L rotator cuff surgery Onset November 27, 2022 Subjective Information Heather reports shoulder is better, not hurting as much; saw last week, said all was good, no working yet; is taking the sling off at home; Assessment PT Clinical Summary Heather has received 12 PT sessions. Compared to the initial evaluation: pain rating at worst from 7 to 3/10; sleeping without shoulder awakening due to pain; increase passive ROM of shoulder flexion, abduction, IR and ER; The goals were achieved. Continue PT with progression per protocol to active assisted and strengthening of shoulder. Plan of Care Interventions Electrical Stimulation,Hot Pack/Cold Pack,Manual Therapy,Patient Education,Therapeutic Activities,Therapeutic Exercise,Ultrasound,Other Other Interventions IASTM, taping PT Services Indicated Yes Treatment Frequency and 2x/wk x 5 weeks Duration These treatments will address the objective and functional deficits as defined above. The patient will be advanced safely and appropriately in order for the patient to progress towards his/her prior level of function. Additional exercises will be introduced and as well as a comprehensive home exercise program upon discharge, if needed, ?to ensure carryover of functional gains achieved in the clinic. This treatment plan has been reviewed and agreement upon by the patient.
--- NOTE | 2023-04-11 14:42 | PCPTNOTE ---
This treatment is being continued on visit number [id number]. Please see documentation on both accounts to view progress. Completed interventions, outcomes, and problems have been marked as Inactive to facilitate the copying of the Care plan routine for recurring accounts.
== END 2023-04-11 10:19 | disposition home or self-care (01) ==
LOC: ANHPT 10:30
PROVIDERS: PCP Family Medicine; Visit Provider Physician Assistant
DX: Z48.89 Encounter for other specified surgical aftercare (principal); Z98.890 Other specified postprocedural states
CPT/HCPCS: 97110; 97140; 97161

== ENCOUNTER 2023-05-12 13:47 | Emergency (ER) | payer OTHER, SELFPAY ==
--- NOTE | ~2023-05-12 | XR_ITS ---
XR chest 2V DATE: 05/12/2023 15:57 INDICATION: Cough TECHNIQUE: 2 views COMPARISON: 10/06/2020 2 view chest FINDINGS: Borderline heart size. Mild aortic unfolding. No hilar or mediastinal enlargement. No pulmonary infiltrate or consolidation, pleural effusion or pulmonary vascular congestion or pneumo thorax. Minimal discoid scarring in the lateral left lower lung. Osteopenia. Mild thoracic levoscoliosis and degenerative spurring. IMPRESSION: No active disease or significant change since 10/06/2020 Reviewed, dictated and finalized at location B.
[2023-05-12 15:08] VITALS: BP 149/87; PULSE 80; RESP 16; TEMP 36.4; O2SAT 97
--- NOTE | 2023-05-12 15:42 | ED.URI ---
HPI - URI/Sore Throat General Chief Complaint: Upper Respiratory Infection Stated Complaint: Cold symptoms Source: patient Mode of arrival: ambulatory Limitations: no limitations History of Present Illness HPI Narrative: 62-year-old female presented for complaint of harsh cough and chest congestion for 5 days. Endorses mild nasal congestion. She denies sore throat, headache, body aches, shortness of breath, wheezing, lethargy, fevers or chills. She has been taking niba-rbq-qiegcvx medication without significant relief in symptoms. She denies known sick contacts. Related Data Home Medications Medication Instructions Recorded Confirmed escitalopram oxalate 10 mg tablet 10 mg PO .EOD 01/13/23 05/12/23 Allergies Allergy/AdvReac Type Severity Reaction Status Date / Time latex Allergy Intermediate Rash Verified 05/12/23 15:05 adhesive Allergy Unknown RASH Verified 05/12/23 15:05 Penicillins Allergy Unknown UNABLE TO Verified 05/12/23 15:05 RECALL chlorhexidine AdvReac Rash Verified 05/12/23 15:05 [From [facility]] Review of Systems Review of Systems: CONSTITUTIONAL: Denies body aches, fever, chills, or sweats. EYES: Denies visual changes, redness, or discharge. ENT: Denies rhinorrhea, congestion, sore throat, or otalgia. CARDIOVASCULAR: Denies chest pain, palpitations, or edema. RESPIRATORY: Reports cough, denies sob, wheezing. GASTROINTESTINAL: Denies abdominal pain, nausea, vomiting, or diarrhea. GENITOURINARY: Denies dysuria or hematuria. SKIN: Denies rash, itching, or wounds. MUSCULOSKELETAL: Denies back pain, joint pain, or myalgia. NEUROLOGIC: Denies headache, numbness, tingling, or weakness. PSYCH: Denies depression or anxiety. All systems reviewed & are unremarkable except as noted in HPI and below PMFSH Past Medical History Medical History Acute stress reaction Allergic rhinitis Bicipital tendinitis, right shoulder Dyskinesia of esophagus Neck strain Pain in right axilla Family History Family History Mother Diabetes mellitus Family history of cardiovascular disease Family history of kidney disease Grandparent Diabetes mellitus Cerebrovascular accident Family history of kidney disease Social History Social History Social History: Caffeine-none Smoking status: Former smoker Tobacco type: cigarettes Second hand tobacco smoke exposure: No Additional smoking assessment comments: STATES SOCIAL SMOKER FOR COUPLE YEARS EARLY 20'S Alcohol intake: current Alcohol use details: STATES MAYBE 4-5 DRINKS A MONTH Substance use: never Substance use type: does not use Lack of Transportation: No Lack of Food: Never True Current Housing: I Have Housing Concerned About Future Housing: No Difficulty Paying Gas/Electric Bills: No Difficulty Paying for Meds: No Currently Unemployed: No Education: High School Diploma/GED Living arrangements: with family Additional living arrangements comments: PT LIVES WITH SON AN BANEGAS [phone] Spiritual care concerns: No Comments At time of signature, I have reviewed and agree with nursing past medical, surgical, social and family history unless otherwise noted. Please see nursing chart for further information. There is no relevant family history pertinent to the presenting complaint Exam Narrative: GENERAL: Well-appearing, in no acute distress. EYES: EOMI. No redness or drainage. Conjunctivae normal. ENT: Mucous membranes pink and moist. No rhinorrhea. TMs normal bilaterally. Throat normal. Uvula midline. NECK: Normal AROM. Supple. CHEST: No respiratory distress. Left base diminished. Scattered crackles throughout. Harsh private duty lpn cough. HEART: Regular rate and rhythm. No murmur appreciated. ABDOMEN: Soft, nontender, nondistended, normal active bow
== END 2023-05-12 16:34 | disposition home or self-care (01) ==
PROVIDERS: Emergency Provider Nurse Practitioner Family; PCP Family Medicine
DX: J40 Bronchitis, not specified as acute or chronic (principal); Z87.891 Personal history of nicotine dependence; K22.4 Dyskinesia of esophagus
CPT/HCPCS: 71046; 99213; G0463

== ENCOUNTER 2023-05-19 15:15 | Outpatient (RCR) | payer OTHER, SELFPAY ==
[2023-04-11 10:21] VITALS: BP_SYST 105
--- NOTE | 2023-04-11 14:44 | PCPTNOTE ---
This treatment is being continued from visit number [id number]. Please see documentation on both accounts to view progress. Completed interventions, outcomes, and problems have been marked as Inactive to facilitate the copying of the Care plan routine for recurring accounts.
[2023-04-20 11:00] VITALS: BP_SYST 90
--- NOTE | 2023-04-20 12:00 | OPREHPOC ---
Outpatient Therapy Plan of Care This is a Multidisciplinary Plan of Care that may contain components documented by all disciplines (PT, OT, and ST.) PT Problem 1 PT Problem #1 Knowledge Deficit PT Goal 1 Goal 1* pt indep with HEP Progress Met Comment 03-16-23 progress met goal continue to progress HEP and education PT Goal 2 Progress Met Comment 04-20-23 progress met goal, continue towards to progress education and HEP PT Problem 2 PT Problem #2 Pain PT Goal 1 Goal 1* pt report pain rating at worst of 6/10 2* pt report with sleeping, awaken 2x/night due to shoulder pain Progress Met Comment 03-16-23 progress met goals NEW GOALS 1* pain rating 2/10 at worst PT Goal 2 Progress Not Met Comment 04-20-23 progress continue towards goal PT Problem 3 PT Problem #3 Impaired Range of Motion PT Goal 1 Goal supine passive ROM of L shoulder: (NO IR behind the back) 1* scaption 140' 2* ER with elbow at side 40' 3* abduction 80'- without rotation Progress Met Comment 03-16-23 progress met goals NEW GOALS: active ROM of L shoulder in standing 1* flexion 140' 2* abduction 130' 3* ER- palm to back of head 4* IR- palm to above waist PT Goal 2 Progress Not Met Comment 04-20-23 progress NEW GOALS: active L shoulder ROM in standing 1* flexion 45'
--- NOTE | 2023-04-20 12:01 | PTOPPROG ---
Assessment and note entered by Rosalva Sheridan, PT Evaluation Information Assessment Status Progress Diagnosis L rotator cuff surgery Onset November 27, 2022 Subjective Information feel like the shoulder is the same; still have pain over side of shoulder; back to work, 8 hour days with more pain; is doing her exercises at home every day- have pulleys at home; PAIN: range in the past week 0-3/10; proximal- lateral humerus; tender to touch, sore and hurts increase pain: working, using L arm decrease pain: rest, ice, taking tramadol PRN- 2x/ past week since return to work sleeping is OK--no awakening due to pain Assessment PT Clinical Summary Heather has received 22 PT sessions. L shoulder ROM: active/passive: flexion 25'/140' abduction 35'/ 90'; extension active 35'; IR active with reaching behind her back, palm to buttocks. Compared to the last progress report: pain rating is the same at 0-3/10; she has returned to work last week at [employer], with reports of more pain after working; the active motion of her L shoulder is the same, except slightly less IR with reaching behind her back; shoulder abduction is most painful; with passive ROM of her shoulder- abduction motion has decreased from 105' to 90'; She remains motivated--works hard during PT sessions and with her HEP. The goals were not achieved. She is not gaining the shoulder strength that would be expected at this time. Skilled PT services to continue, 1-2x/wk for pain control, shoulder strengthening and progression of HEP. Plan of Care Interventions Hot Pack/Cold Pack,Manual Therapy,Neuro Re- education,Patient Education,Therapeutic Activities,Therapeutic Exercise,Ultrasound,Other Other Interventions IASTM, taping PT Services Indicated Yes Treatment Frequency and 1-2x/wk for 4 weeks Duration These treatments will address the objective and functional deficits as defined above. The patient will be advanced safely and appropriately in order for the patient to progress towards his/her prior level of function. Additional exercises will be introduced and as well as a comprehensive home exercise program upon discharge, if needed, ?to ensure carryover o
--- NOTE | 2023-05-08 09:31 | PCPTNOTE ---
Pt. canceled 05/08/23 appointment noting that she was sick.
--- NOTE | 2023-05-10 10:48 | PCPTNOTE ---
returned call to Shelly Mckenzie about pt....office [phone]; her personal cell #[phone]; Heather was in the office for follow up and due to issues on their end receiving info, she did not have the latest progress report. Shelly asked about pt and her progress, ROM and status. Discussed that her passive ROM is increasing, but active strength is NOT progressing. Shelly reports pt had a large rotator cuff tear. Shelly will discuss with pt if she wants additional imaging to assess the repair and if there are any issues with it, but that would involve surgery to correct and Heather told her, she does not want any additional surgery on her shoulder. Shelly is going to call Heather for the next step, but she wants Heather to continue on with her therapy at this time.
--- NOTE | 2023-05-12 14:26 | PCPTNOTE ---
Pt. canceled 05/12/23 appointment as she was still sick and in urgent care currently.
[2023-05-19 15:20] VITALS: BP_SYST 120
--- NOTE | 2023-05-19 15:58 | PTOPDC ---
Assessment and note entered by Rosalva Sheridan, PT Evaluation Information Assessment Status Discharge Diagnosis L rotator cuff surgery Onset November 27, 2022 Subjective Information use L arm as much as she can, but still cannot lift it up, have to keep it at her side to use it; feels like it has not changed; told her they wanted to do a follow up MRI to see if she needs more surgery, but she does not want any more surgery on her shoulder at this point in time; is getting used to it and having to use her R arm more; is doing all of the exercises at home; have pulleys at home; she agrees to discharge from PT and continue HEP. Reported Pain Level Pain Score Self Report Additional Pain Score Comments pain range in the past week: 0-7/10; more pain after last therapy session and really worked my shoulder; pointed to upper-lateral humerus as area of pain- below GH joint; decrease pain with pain pill- taken 1x in past week, move arm,using home stim unit increase pain: move the arm in wrong way sleep is not disrupted due to shoulder pain- sleep on her back or slightly onto R side Assessment PT Clinical Summary Heather has received 26 PT sessions, and is 18 weeks post op L shoulder surgery. Compared to the last progress report: pain rating was 0-3/10 and now 0-7/10 with increased activity reports taking tramadol decreased from 2 to 1x/ wk; active and passive ROM of L shoulder are about the same; with initiation of shoulder motion she elevates shoulder and substitutes; she is indep with HEP and pain management; L shoulder ROM: active in standing/passive in supine: flexion 25'/140' abduction 30'/ 120' IR- reach towards back, palm to L buttock ER- reach towards back of head, palm to cheek/ elbow at side 45' with most pain increase IR motion; Palpation--tenderness over proximal to mid biceps and mid deltoid. The goals were partially met for pt education; ROM is about the same as 4
== END 2023-05-22 15:01 | disposition home or self-care (01) ==
LOC: ANHPT 15:15
PROVIDERS: PCP Family Medicine; Visit Provider Physician Assistant
DX: Z48.89 Encounter for other specified surgical aftercare (principal); Z98.890 Other specified postprocedural states
CPT/HCPCS: 97014; 97110; 97112; 97140; G0283

== ENCOUNTER 2023-10-12 13:55 | Outpatient (CLI) | payer OTHER, SELFPAY ==
[2023-10-12 19:19] LABS: Alanine Aminotransferase 31 U/L (6-35); Albumin Level 4.7 g/dL (3.5-5.1); Alkaline Phosphatase 144 U/L (38-126); Anion Gap 9 mmol/L (4-12); Aspartate Amino Transferase 36 U/L (14-36); Bilirubin,Total 0.6 mg/dL (0.2-1.3); Blood Urea Nitrogen 14 mg/dL (7-17); Calcium 9.9 mg/dL (8.4-10.2); Carbon Dioxide 27 mmol/L (22-30); Chloride 100 mmol/L (98-107); Cholesterol 289 mg/dL (0-200); Estimated Glomerular Filt Rate > 60; Glucose 84 mg/dL (65-110); HDL Direct 40 mg/dL; Potassium 3.7 mmol/L (3.4-5.0); Sodium 136 mmol/L (137-145); Triglycerides 401 mg/dL (<150)
[2023-10-12 19:30] LABS: LDL Cholesterol Direct 161 mg/dL
[2023-10-12 19:45] LABS: Thyroid Stimulating Hormone 0.966 uIU/mL (0.465-4.680)
[2023-10-12 21:26] LABS: Creatinine Urine 30.8 mg/dL
[2023-10-12 21:45] LABS: Microalbumin Urine Random < 6.0 mg/L (0-16.7)
[2023-10-12 21:46] LABS: MALB Creatinine Ratio < 19.5 mg/g (0-30)
[2023-10-12 22:46] LABS: Hemoglobin A1C 6.1 % (<5.7)
== END 2023-10-12 13:56 | disposition home or self-care (01) ==
LOC: ANHGOSHLAB 13:56
PROVIDERS: PCP Family Medicine; Visit Provider Family Medicine
DX: R73.03 Prediabetes (principal); L30.9 Dermatitis, unspecified
CPT/HCPCS: 36415; 80053; 80061; 82043; 83036; 84443

== ENCOUNTER 2023-11-03 07:44 | Outpatient (CLI) | payer OTHER, SELFPAY ==
--- NOTE | ~2023-11-03 | US_ITS ---
US abdomen complete EXAMINATION: US Abdomen Complete INDICATION: Upper abdomen pain PROCEDURE: Realtime High Resolution abdomen ultrasound. COMPARISON: No prior studies for comparison FINDINGS: Gallbladder within normal limits. No gallstones, pericholecystic fluid, gallbladder wall t hickening or biliary dilatation. Common bile duct measures 4 mm. Liver echotexture is increased, consistent with fatty infiltration.. Pancreas within normal limits. Pancreatic tail is obscured by bowel gas. Spleen is unremarkeable. Renal echotexture is within norm al limits bilaterally without hydronephrosis, contour deforming mass or renal stone. Right kidney nella sures 11.2 cm. Left kidney measures 10.9 cm. There is aneurysm of the upper abdominal aorta measuring 3.4 cm.. Portal vein is patent. No sonograph ic Yates's sign indicated by the technologist. IMPRESSION: 1: Abdominal aortic aneurysm measuring 3.4 cm, possibly suprarenal. 2: Fatty infiltration of the liver. Reviewed, dictated and finalized at location B.
== END 2023-11-03 07:45 ==
LOC: GOSHIMG 07:44
PROVIDERS: PCP Family Medicine; Visit Provider Nurse Practitioner Family
DX: I71.40 Abdominal aortic aneurysm, without rupture, unspecified (principal); K76.0 Fatty (change of) liver, not elsewhere classified
CPT/HCPCS: 76700

== ENCOUNTER 2024-05-28 14:13 | Outpatient (CLI) | payer OTHER, SELFPAY ==
[2024-05-28 19:31] LABS: Alanine Aminotransferase 45 U/L (6-35); Albumin Level 4.3 g/dL (3.5-5.1); Alkaline Phosphatase 167 U/L (38-126); Anion Gap 9 mmol/L (4-12); Aspartate Amino Transferase 52 U/L (14-36); Bilirubin,Total 0.5 mg/dL (0.2-1.3); Blood Urea Nitrogen 11 mg/dL (7-17); Calcium 8.9 mg/dL (8.4-10.2); Carbon Dioxide 32 mmol/L (22-30); Chloride 99 mmol/L (98-107); Cholesterol 204 mg/dL (0-200); Estimated Glomerular Filt Rate > 60; Glucose 108 mg/dL (65-110); HDL Direct 47 mg/dL; Sodium 140 mmol/L (137-145); Triglycerides 346 mg/dL (<150)
[2024-05-28 19:42] LABS: LDL Cholesterol Direct 96 mg/dL
[2024-05-28 21:23] LABS: Hemoglobin A1C 6.3 % (<5.7)
== END 2024-05-28 14:14 | disposition home or self-care (01) ==
LOC: ANHGOSHLAB 14:14
PROVIDERS: PCP Family Medicine; Visit Provider Family Medicine
DX: R73.03 Prediabetes (principal); E78.2 Mixed hyperlipidemia
CPT/HCPCS: 36415; 80053; 80061; 83036

== ENCOUNTER 2024-10-10 13:32 | Outpatient (CLI) | payer OTHER, SELFPAY ==
--- OUTSIDE RECORDS SUMMARY | 2024-10-10 13:54 | XMS_ITS | Referral Summary ---
Author Organization [facility] 163 [facility] Address [address] [place] [address] Care Team Providers Care Tankage Supervisor Name Role Phone Jamey Salcedo MD Primary Care Provider [phone] Shelly Anderson PA Unavailable [phone] Allergies Active Allergy Reactions Criticality Noted Date Comments Iodine Rash Medium 01/16/2023 Latex Rash Medium 01/24/2023 Penicillins Other (See comments) Low 05/09/2021 Pt states she cannot recall exact reaction, makes me sick. Medications atorvastatin (LIPITOR) 40 mg tablet Take 1 tablet (40 mg total) by mouth daily 1 Active hydroCHLOROthia zide (MICROZIDE) 12.5 mg capsule Take 1 capsule (12.5 mg total) by mouth daily 1 Active metoprolol XL (TOPROL-XL) 50 mg extended release tablet Take 1 tablet (50 mg total) by mouth daily 1 Active omeprazole (PriLOSEC) 40 mg capsule Take 1 capsule (40 mg total) by mouth daily [address] (VOLTAREN) 50 mg EC tablet Take 1 tablet (50 mg total) by mouth 2 (two) times a day 3 Active escitalopram (LEXAPRO) 10 mg tablet Take 1 tablet (10 mg total) by mouth daily 3 Active ascorbic acid (VITAMIN C) 500 mg tablet,chewable Take 1 tablet/chew tab (500 mg total) by mouth 2 (two) times a day 60 tablet/chew tab 3 Active Additional Information Patient not taking.Reported on 06/19/2024 cholecalciferol (VITAMIN D-3) 2000 unit capsule Take 1 capsule (2,000 Units total) by mouth daily 30 capsule 3 Active ondansetron (ZOFRAN) 4 mg tabletIndicatio ns:Prevention of Post-Operative Nausea and Vomiting Take 1 tablet (4 mg total) by mouth every 6 (six) hours as needed for nausea or vomiting 30 tablet 1 3 Active Additional Information Patient not taking.Reported on 06/19/2024 oxyCODONE-aceta minophen (PERCOCET) 5-325 mg per tabletIndicatio ns:Pain Take 1-2 tablets by mouth every 4 (four) hours as needed for pain 43 tablet 3 Active Additional Information Patient not taking.Reported on 06/19/2024 senna-docusate (PERICOLACE) 8.6-50 mg 1-2 times daily as needed for constipation 60 tablet 1 3 Active Additional Information Patient not taking.Reported on 06/19/2024 albuterol HFA (PROVENTIL HFA,VENTOLIN HFA,PROAIR HFA) 90 mcg/actuation inhaler INHALE 2 PUFFS BY MOUTH 4 TIMES DAILY NEEDED FOR SHORTNESS OF BREATH OR WHEEZING 3 Active sucralfate (CARAFATE) 1 gram tablet Take 1 tablet (1 g total) by mouth 4 (four) times a day Active Active Problems Problem Noted Date Diagnosed Date Infrarenal abdominal aortic aneurysm (AAA) witho ut rupture 11/30/2023 Assessment & Plan (06/24/2024 7:46 AM CRIB PAD MAKER): Questionable small infrarenal abdominal aortic aneurysm. Discrepant duplex studies 1 measuring 3.41 measuring ectasia at 2.5 cm. Recommend repeat aortoiliac duplex in 1 year. Assessment & Plan (11/30/2023 1:48 PM CDT): Incidental finding of a abdominal aortic aneurysms currently measuring 3.4 cm on ultrasound. Plan: Follow up in 6 months with aortic duplex in the [place] office. Traumatic tear of left rotator cuff, initial enc ounter 01/09/2023 Arthritis of left acromioclavicular joint 2022 Hyperlipidemia Assessment & Plan (06/24/2024 7:46 AM CRIB PAD MAKER): Stable continue Lipitor Hypertension Assessment & Plan (06/24/2024 7:46 AM CRIB PAD MAKER): Stable continue metoprolol Lymphedema Social History Tobacco Use Types Packs/Day Years Used Date Smoking Tobacco: Former Cigarettes Smokeless Tobacco: Never Comments:Hx social smoking AUDIT-C Answer Date Recorded Q1: How often do you have a drink containing alc ohol? 2-3 times a week 01/24/2023 Q2: How many drinks containi ng alcohol do you have on a typical day when you are drinking? 1 or 2 01/24/2023 Q3: How often do you have si x or more drinks on one occasion? Never 01/24/2023 Personal Safety Answer Date Recorded Have you ever been in or are you currently in a harmful physical or emotional relationship or is someone making you feel afraid or unsafe? Denies 01/24/2023 Comments No Sex and Gender Information Value Date Recorded Sex Assigned at Not on file Legal Sex Female 11:53 AM CRIB PAD MAKER Gender Identity Not on file Sexual Orientation Not on file Last Filed Vital Signs Vital Sign Reading Time Taken Comments Blood Pressure 135/82 06/19/2024 9:57 AM CRIB PAD MAKER Pulse 83 06/19/2024 9:57 AM CRIB PAD MAKER Temperature 36.4 C (97.5 F) 01/24/2023 3:15 PM CDT Respiratory Rate 20 01/24/2023 4:45 PM CDT Oxygen Saturation 100% 06/19/2024 9:57 AM CRIB PAD MAKER Inhaled Oxygen Concentration - - Weight 99.3 kg (219 lb) 06/19/2024 9:57 AM CRIB PAD MAKER Height 161.3 cm (5' 3.5 ) 06/19/2024 9:57 AM CRIB PAD MAKER Body Mass Index 38.19 06/19/2024 9:57 AM CRIB PAD MAKER Plan of Treatment Not on file Medical Devices Implanted Type Area Furniture Detailer Device Identifier Shelf Expiration Date Model / Serial / Lot [employer] Suture [place] Fiberwire Biocomp Fibertak 1.3x1.7mm Ar-3652tsp - Sn/A - [id number] Implanted:Qty: 1 on 01/24/2023 by Kalin Pascual MD at [facility] Left: Shoulder [employer] [id number] 04/08/2027 AR-3652TSP / N/A / [id number] [employer] Swivelock Tenodesis 6.25mm 19.1mm Closed Eyelet Shoulder Biceps Ar-1662bc - [id number] Implanted:Qty: 1 on 01/24/2023 by Kalin Pascual MD at [facility] Left: Shoulder [employer] 09/06/2026 AR-1662BC / / [id number] [employer] Swivelock C 5.5mm 19.1mm Closed Eyelet Vent [place] Suture Ar-2323bcc - [id number] Implanted:Qty: 1 on 01/24/2023 by Kalin Pascual MD at [facility] Left: Shoulder [employer] 08/09/2026 AR-2323BCC / / [id number] [employer] Swivelock C 5.5mm 19.1mm Closed Eyelet Vent [place] Suture Ar-2323bcc - [id number] Implanted:Qty: 1 on 01/24/2023 by Kalin Pascual MD at [facility] Left: Shoulder [employer] 08/09/2026 AR-2323BCC / / [id number] Insurance [facility] [place] [address] Care Teams Tankage Supervisor Relationship Specialty Start Date End Date Jamey Salcedo MD PCP - General Family Medicine 05/09/21 Shelly Anderson PA [address] [place] [address] [address] [place] [id number] Physician Tunnel Man Orthopedic Surgery 01/24/23
--- OUTSIDE RECORDS SUMMARY | 2024-10-10 13:54 | XMS_ITS | Clinical Summary ---
Author Organization [facility] [place] 163 [facility] Address [address] [place] [address] Care Team Providers Care Clip Loading Machine Feeder Name Role Phone Jamey Salcedo MD Primary Care Provider [phone] Shelly Anderson PA Unavailable [phone] Allergies Active Allergy Reactions Criticality Noted Date [...] 11/30/2023 Assessment & Plan (06/24/2024 7:46 AM TERRA COTTA ROOFER): Questionable small infrarenal abdominal aortic aneurysm. Discrepant duplex studies 1 measuring 3.41 measuring ectasia at 2.5 cm. Recommend repeat aortoiliac duplex in 1 year. Assessment & Plan (11/30/2023 1:48 PM CDT): Incidental finding of a abdominal aortic aneurysms currently measuring 3.4 cm on ultrasound. Plan: Follow up in 6 months with aortic duplex in the [place] office. Traumatic tear of left rotator cuff, initial enc ounter 01/09/2023 Arthritis of left acromioclavicular joint 2022 Hyperlipidemia Assessment & Plan (06/24/2024 7:46 AM TERRA COTTA ROOFER): Stable continue Lipitor Hypertension Assessment & Plan (06/24/2024 7:46 AM TERRA COTTA ROOFER): Stable continue metoprolol Lymphedema Surgical History Surgery Date Site/Laterality Comments ORIF ANKLE FRACTURE Right BLADDER SURGERY 07/10/2020 - 07/09/2021 x 2 HYSTERECTOMY TUBAL LIGATION Medical History Medical History Date Comments Hyperlipidemia Hypertension GERD (gastroesophageal reflux disease) Motion sickness Lymphedema Family History Medical History Relation Name Comments Brain Aneurysm Father Heart disease Mother Kidney disease Mother Relation Name Status Comments Father Mother Social History Tobacco Use Types Packs/Day Years [...] on file Legal Sex Female 11:53 AM TERRA COTTA ROOFER Gender Identity Not on file Sexual Orientation Not on file Obstetrics History Last Filed Vital Signs Vital Sign Reading Time Taken Comments Blood Pressure 135/82 06/19/2024 9:57 AM TERRA COTTA ROOFER Pulse 83 06/19/2024 9:57 AM TERRA COTTA ROOFER Temperature 36.4 C (97.5 F) 01/24/2023 3:15 PM CDT Respiratory Rate 20 01/24/2023 4:45 PM CDT Oxygen Saturation 100% 06/19/2024 9:57 AM TERRA COTTA ROOFER Inhaled Oxygen Concentration - - Weight 99.3 kg (219 lb) 06/19/2024 9:57 AM TERRA COTTA ROOFER Height 161.3 cm (5' 3.5 ) 06/19/2024 9:57 AM TERRA COTTA ROOFER Body Mass Index 38.19 06/19/2024 9:57 AM TERRA COTTA ROOFER Plan of Treatment Health Maintenance Due Date Last Done Comments Breast Cancer Screening-Mammogram 1960 Colon Cancer Screening-Colonoscopy 1960 Depression Screening 1958 Fall Risk Assessment 1958 Hepatitis C Screening 1958 Osteoporosis Screening-Bone Density Scan 1958 DTaP/Tdap/Td Vaccine (1 - Tdap) 1969 Hepatitis B Screening 1976 Zoster Vaccine (1 of 2) 2008 Pneumococcal vaccine 65+ (2 of 2 - PPSV23) 11/12/2020 11/13/2019 Well Visit 65+ 2023 Covid-19 Vaccine (4 - 2023-2 5 season) 2024 07/12/2021, 09/29/2020, 09/08/2020 Influenza Vaccine (#1) 2024 , 07/12/2021, 06/15/2020, Additional history exists Medical Devices Implanted Type Area Multifocal Button Inspector Device Identifier Shelf Expiration Date Model / Serial / Lot [employer] Suture [place] Fiberwire Biocomp Fibertak 1.3x1.7mm Lf Ar-3652tsp - Sn/A - [id number] Implanted:Qty: 1 on 01/24/2023 by Kalin Pascual MD at [facility] Left: Shoulder [employer] [id number] 04/08/2027 AR-3652TSP / N/A / [id number] [employer] Swivelock Tenodesis 6.25mm 19.1mm Closed Eyelet Shoulder Biceps Ar-1662bc - [id number] Implanted:Qty: 1 on 01/24/2023 by Kalin Pascual MD at [facility] Left: Shoulder [employer] 09/06/2026 AR-1662BC / / [id number] [employer] Swivelock C 5.5mm 19.1mm Closed Eyelet Vent [place] Suture Ar-2323bcc - [id number] Implanted:Qty: 1 on 01/24/2023 by Kalin Pascual MD at [facility] Left: Shoulder [employer] 08/09/2026 AR-2323BCC / / [id number] [employer] Swivelock C 5.5mm 19.1mm Closed Eyelet Vent [place] Suture Ar-2323bcc - [id number] Implanted:Qty: 1 on 01/24/2023 by Kalin Pascual MD at [facility] Left: Shoulder [employer] 08/09/2026 AR-2323BCC / / [id number] Insurance Member Subscriber Plan / Payer (Ef fective 2021-Present) Name:Kiara De Leon A Relation to Subscriber:Self Name:Kiara De Leon A Payer ID:[id number] (NAIC) Type:[facility] HMO/PPO Address: [place] [id number] Member Subscriber Plan / Payer ( fective 2021-Present) Name:Kiara De Leon A Relation to Subscriber:Self Name:Kiara De Leon A Payer ID:[id number] (NAIC) Type:[facility] HMO/PPO Address: [place] [id number] Care Teams Clip Loading Machine Feeder Relationship Specialty Start Date End Date Jamey Salcedo MD PCP - General Family Medicine 05/09/21 Shelly Anderson PA [address] [place] [address] [address] [place] [address] Physician Oil And Gas Superintendent Orthopedic Surgery 01/24/23
[2024-10-10 19:14] LABS: Basophils Percent Auto 0.2 % (0.2-1.2); Eosinophils Absolute Auto 0.2 K/mm3 (0-0.3); Eosinophils Percent Auto 1.5 % (0-4.4); Hematocrit 37.5 % (37.0-47.0); Hemoglobin 11.7 g/dL (12.0-15.0); Immature Granulocyte Absolute 0.05 K/mm3 (0.00-0.031); Immature Granulocyte Percent A 0.4 % (0-0.5); Lymphocytes Absolute Auto 3.25 K/mm3 (0.9-3.2); Lymphocytes Percent Auto 28.4 % (18.3-44.2); Mean Corpuscular HGB Conc 31.2 g/dl (32-36); Mean Corpuscular Hemoglobin 28.1 pg (26-34); Mean Corpuscular Volume 90.1 fl (80-100); Monocytes Absolute Auto 0.7 K/mm3 (0.1-0.6); Neutrophils Absolute Auto 7.3 K/mm3 (1.3-6.7); Neutrophils Percent Auto 63.5 % (45.5-73.1); Platelet Count Result 253 k/mm3 (150-375); Red Blood Count 4.16 M/mm3 (4.2-5.4); Red Cell Distribution Width 14.5 % (11.5-14.5); White Blood Count 11.5 K/mm3 (4.5-10.0)
[2024-10-10 19:23] LABS: Alanine Aminotransferase 56 U/L (6-35); Albumin Level 4.4 g/dL (3.5-5.1); Alkaline Phosphatase 246 U/L (38-126); Anion Gap 9 mmol/L (4-12); Aspartate Amino Transferase 47 U/L (14-36); Bilirubin,Total 0.4 mg/dL (0.2-1.3); Blood Urea Nitrogen 20 mg/dL (7-17); Calcium 9.3 mg/dL (8.4-10.2); Carbon Dioxide 28 mmol/L (22-30); Chloride 102 mmol/L (98-107); Cholesterol 192 mg/dL (0-200); Estimated Glomerular Filt Rate 53; Glucose 78 mg/dL (65-110); HDL Direct 46 mg/dL; Potassium 4.3 mmol/L (3.4-5.0); Sodium 139 mmol/L (137-145); Triglycerides 339 mg/dL (<150)
[2024-10-10 19:34] LABS: LDL Cholesterol Direct 82 mg/dL
[2024-10-10 20:10] LABS: Vitamin D 25 Hydroxy 60.3 ng/mL
[2024-10-10 20:50] LABS: Hemoglobin A1C 5.8 % (<5.7)
== END 2024-10-10 13:33 | disposition home or self-care (01) ==
PROVIDERS: PCP Family Medicine; Visit Provider Family Medicine
DX: K21.00 Gastro-esophageal reflux disease with esophagitis, without bleeding (principal); K76.0 Fatty (change of) liver, not elsewhere classified; E78.2 Mixed hyperlipidemia
CPT/HCPCS: 36415; 80053; 80061; 82306; 82607; 83036; 85025

== ENCOUNTER 2025-02-13 11:48 | Outpatient (CLI) | payer OTHER, SELFPAY ==
--- OUTSIDE RECORDS SUMMARY | 2025-02-13 11:50 | XMS_ITS | Clinical Summary ---
Author Organization [facility] 163 [facility] Address [address] [place] [address] Care Team Providers Care Vp Patient Name Role Phone Jamey Salcedo MD Primary Care Provider [phone] Shelly Anderson PA Unavailable Allergies Active Allergy Reactions Criticality Noted Date [...] 11/30/2023 Assessment & Plan (06/24/2024 7:46 AM BSS SOLUTION ARCHITECT): Questionable small infrarenal abdominal aortic aneurysm. Discrepant duplex studies 1 measuring 3.41 measuring ectasia at 2.5 cm. Recommend repeat aortoiliac duplex in 1 year. Assessment & Plan (11/30/2023 1:48 PM CDT): Incidental finding of a abdominal aortic aneurysms currently measuring 3.4 cm on ultrasound. Plan: Follow up in 6 months with aortic duplex in the [facility] office. Traumatic tear of left rotator cuff, initial enc ounter 01/09/2023 Arthritis of left acromioclavicular joint 2022 Hyperlipidemia Assessment & Plan (06/24/2024 7:46 AM BSS SOLUTION ARCHITECT): Stable continue Lipitor Hypertension Assessment & Plan (06/24/2024 7:46 AM BSS SOLUTION ARCHITECT): Stable continue metoprolol Lymphedema Surgical History Surgery [...] on file Legal Sex Female 11:53 AM BSS SOLUTION ARCHITECT Gender Identity Not on file Sexual Orientation Not on file Obstetrics History Last Filed Vital Signs Vital Sign Reading Time Taken Comments Blood Pressure 135/82 06/19/2024 9:57 AM BSS SOLUTION ARCHITECT Pulse 83 06/19/2024 9:57 AM BSS SOLUTION ARCHITECT Temperature 36.4 C (97.5 F) 01/24/2023 3:15 PM CDT Respiratory Rate 20 01/24/2023 4:45 PM CDT Oxygen Saturation 100% 06/19/2024 9:57 AM BSS SOLUTION ARCHITECT Inhaled Oxygen Concentration - - Weight 99.3 kg (219 lb) 06/19/2024 9:57 AM BSS SOLUTION ARCHITECT Height 161.3 cm (5' 3.5) 06/19/2024 9:57 AM BSS SOLUTION ARCHITECT Body Mass Index 38.19 06/19/2024 9:57 AM BSS SOLUTION ARCHITECT Plan of Treatment Health Maintenance Due Date [...] 2024 07/12/2021, 09/29/2020, 09/08/2020 Influenza Vaccine (#1) 2025 , 07/12/2021, 06/15/2020, Additional history exists Medical Devices Implanted Type Area Caregivers Homecare Device Identifier Shelf Expiration Date Model / Serial / Lot [employer] Suture [place] Fiberwire Biocomp Fibertak 1.3x1.7mm Lf Ar-3652tsp - Sn/A - [id number] Implanted:Qty: 1 on 01/24/2023 by Kalin Pascual MD at [facility] Left: Shoulder [employer] C1713 04/08/2027 AR-3652TSP / N/A / [id number] [employer] Swivelock Tenodesis 6.25mm 19.1mm Closed Eyelet Shoulder Biceps Ar-1662bc - [id number] Implanted:Qty: 1 on 01/24/2023 by Kalin Pascual MD at [facility] Left: Shoulder [employer] 09/06/2026 AR-1662BC / / [id number] [employer] Swivelock C 5.5mm 19.1mm Closed Eyelet Vent [place] Suture Ar-2323bcc - [id number] Implanted:Qty: 1 on 01/24/2023 by Kalin Pascual MD at [facility] Left: Shoulder [employer] 08/09/2026 AR-2323BCC / / [id number] [employer] Swivelock C 5.5mm 19.1mm Closed Eyelet Vent [place] Suture Ar-2323bcc - [id number] Implanted:Qty: 1 on 01/24/2023 by Kalin Pascual MD at [facility] Left: Shoulder [employer] 08/09/2026 AR-2323BCC / / [id number] Insurance Member Subscriber Plan / Payer (Ef fective 2021-Present) Name:Kiara De Leon A Relation to Subscriber:Self Name:Kiara De Leon A Payer ID:[id number] (NAIC) Type:[facility] HMO/PPO Address: [place] [id number] Member Subscriber Plan / Payer ( fective 2021-Present) Name:Kiara De Leon A Relation to Subscriber:Self Name:Kiara De Leon A Payer ID:[id number] (NAIC) Type:[facility] HMO/PPO Address: [place] [id number] Care Teams Vp Patient Relationship Specialty Start Date End Date Jamey Salcedo MD PCP - General Family Medicine 05/09/21 Shelly Anderson PA [address] [place] [address] [address] [place] [address] Physician Technical Solution Architect Orthopedic Surgery 01/24/23
[2025-02-13 13:08] LABS: Hematocrit 37.3 % (37.0-47.0); Hemoglobin 12.2 g/dL (12.0-15.0); Immature Granulocyte Percent A 0.3 % (0-0.5); Lymphocytes Absolute Auto 2.83 K/mm3 (0.9-3.2); Mean Corpuscular HGB Conc 32.7 g/dl (32-36); Mean Corpuscular Hemoglobin 29.0 pg (26-34); Mean Corpuscular Volume 88.8 fl (80-100); Nucleated Red Blood Cells Absolute Auto 0.000 K/mm3 (0.0-0.012); Nucleated Red Blood Cells Perc 0.0 % (0.0-0.2); Platelet Count Result 227 k/mm3 (150-375); Red Blood Count 4.20 M/mm3 (4.2-5.4); White Blood Count 9.9 K/mm3 (4.5-10.0)
[2025-02-13 13:16] LABS: Alanine Aminotransferase 31 U/L (6-35); Albumin Level 4.4 g/dL (3.5-5.1); Alkaline Phosphatase 188 U/L (38-126); Anion Gap 11 mmol/L (4-12); Aspartate Amino Transferase 41 U/L (14-36); Bilirubin,Total 0.6 mg/dL (0.2-1.3); Blood Urea Nitrogen 15 mg/dL (7-17); Calcium 9.1 mg/dL (8.4-10.2); Carbon Dioxide 27 mmol/L (22-30); Chloride 101 mmol/L (98-107); Cholesterol 181 mg/dL (0-200); Estimated Glomerular Filt Rate 46; Glucose 88 mg/dL (65-110); HDL Direct 40 mg/dL; Potassium 4.2 mmol/L (3.4-5.0); Sodium 139 mmol/L (137-145); Total Protein 7.7 g/dL (6.3-8.2); Triglycerides 232 mg/dL (<150)
[2025-02-13 14:11] LABS: Vitamin B12 419.0 pg/mL (239-931)
[2025-02-13 16:10] LABS: Hemoglobin A1C 5.8 % (<5.7)
== END 2025-02-13 11:49 | disposition home or self-care (01) ==
LOC: ANHGOSHLAB 11:49
PROVIDERS: PCP Family Medicine; Visit Provider Family Medicine
DX: K76.0 Fatty (change of) liver, not elsewhere classified (principal); R73.03 Prediabetes; E53.8 Deficiency of other specified B group vitamins
CPT/HCPCS: 36415; 80053; 80061; 82607; 83036; 85025

== ENCOUNTER 2025-04-25 13:11 | Outpatient (CLI) | payer OTHER, SELFPAY ==
--- NOTE | ~2025-04-25 | DEXA_ITS ---
Bone Density Report Name: MARII MAXWELL Age: 64 Sex: Female Ethnicity: White Date of : 1960 Indication: osteopenia; Referring Provider: CHOCO MOSLEY Study: Bone densitometry was performed. Exam Date: April 25, 2025 Accession number: [id number] Bone Density: Region BMD T-score Z-score Classification AP Spine(L1-L4) 0.875 -1.6 0.3 Osteopenia Femoral Neck (Left) 0.663 -1.7 -0.1 Osteopenia Total Hip (Left) 0.815 -1.0 0.3 Normal Femoral Neck (Right) 0.638 -1.9 -0.3 Osteopenia Total Hip (Right) 0.792 -1.2 0.1 Osteopenia Total Hip Mean 0.803 -1.1 0.2 Osteopenia World Health Organization criteria for BMD impression classify patients as: Normal (T-score at or above -1.0), Osteopenia (T-score between -1.0 and -2.5), or Osteoporosis (T-score at or below -2.5). 10-year Fracture Risk(1): Major Osteoporotic Fracture 9.8% Hip Fracture 1.4% Reported Risk Factors: [place] (), Neck BMD=0.638, BMI=32.8 (1) FRAX(R) Version 3.08. Fracture probability calculated for an untreated patient. Fracture probability may be lower if the patient has received treatment. Previous Exams: -- Region Exam Age BMD T-score BMD Change BMD Change Date g/cm2 vs Baseline vs Previous -- AP Spine (L1-L4) 04/25/2025 64 0.875 -1.6 -2.1%# -2.1%# 05/13/2022 61 0.894 -1.4 Total Hip(Left) 04/25/2025 64 0.815 -1.0 -4.1%# -4.1%# 05/13/2022 61 0.850 -0.8 Total Hip(Right) 04/25/2025 64 0.792 -1.2 -5.9%# -5.9%# 05/13/2022 61 0.842 -0.8 -- *Denotes significance at 95% confidence level, LSC for AP Spine = 0.022 g/cm2, LSC for Total Hip = 0.027 g/cm2 # Denotes dissimilar scan types or analysis methods Clinical Information Provided by Patient: Has used the following medications: Vitamin D, Calcium Patient maximum height was 64 Menopause Age: 44 No regular weight bearing exercise Does not regularly consume dairy products Drinks caffeinated beverages Onset of menses at age 10 Number of children 2 Impression: The patient has low bone mass, based on the Right Femoral Neck T-score. The patient has an estimated ten-year risk of hip fracture of 1.4% and an estimated ten-year risk of major fracture of 9.8%, based on the WHO FRAX algorithm. Unable to evaluate interval change due to the use of different scan modes. Discussion: BONE DENSITY IS LOW AT ONE OR MORE SKELETAL SITES. This patient's lowest T-score is low at one or more skeletal sites. It meets the World Health Organization's (WHO) criteria for ?low bone mass? (T-score between -1.0 and -2.5). The patient's 10-year risk of fracture as calculated by FRAX is less than the threshold where pharmacological therapy is recommended by the National Osteoporosis Foundation (NOF). However, all treatment decisions require clinical judgment and consideration of individual patient factors, including patient preferences, comorbidities, previous drug use, risk factors not captured in the FRAX model (e.g., frailty, falls, vitamin D deficiency, increased bone turnover, interval significant decline in bone density) and possible under or overestimation of fracture risk by FRAX. The patient should follow a healthful lifestyle (good nutrition with adequate calcium and vitamin D, and appropriate weight-bearing exercise). Follow-Up: Consider repeating this study in 2 to 3 years to reassess this patient's status, or sooner if there is some new clinical indication. Reported by: PAL on 04/25/2025 1:55:00 PM. Reviewed, dictated and finalized at location A.
--- NOTE | ~2025-04-25 | MM_ITS ---
EXAMINATION: MM screening [facility] BI w michael HISTORY: Screening TECHNIQUE: Craniocaudal and mediolateral oblique 3-D tomosynthesis images were obtained and synthetic 2-D images were generated. CAD analysis was submitted and interpreted. COMPARISON: 07/30/2022 BREAST PARENCHYMAL COMPOSITION: There are scattered areas of fibroglandular density. FINDINGS: There is no evidence of suspicious mass or architectural distortion to suggest malignancy. Indeterminant calcifications in the upper inner quadrant of the right breast, middle depth. IMPRESSION: 1. Indeterminant calcifications in the upper inner quadrant of the right breast, middle depth. The study is incomplete. A diagnostic mammogram is recommended. BI-RADS 0: Incomplete-Need additional imaging evaluation. Reviewed, dictated and finalized at location Q. IMPRESSION: 1. Indeterminant calcifications in the upper inner quadrant of the right breast , middle depth. The study is incomplete. A diagnostic mammogram is recommended. BI-RADS 0: Incomplete-Need additional imaging evaluation.
== END 2025-04-25 13:12 | disposition home or self-care (01) ==
LOC: MICIMG 13:13
PROVIDERS: PCP Family Medicine; Visit Provider Family Medicine
DX: Z12.31 Encounter for screening mammogram for malignant neoplasm of breast (principal); R92.8 Other abnormal and inconclusive findings on diagnostic imaging of breast; M85.89 Other specified disorders of bone density and structure, multiple sites; Z78.0 Asymptomatic menopausal state; Z13.820 Encounter for screening for osteoporosis
CPT/HCPCS: 77063; 77067; 77080

== ENCOUNTER 2025-06-18 08:17 | Outpatient (CLI) | payer OTHER, SELFPAY ==
--- NOTE | ~2025-06-18 | MM_ITS ---
EXAMINATION: MM diagnostic [facility] w michael HISTORY: Additional imaging TECHNIQUE: Craniocaudal and mediolateral oblique 3-D tomosynthesis images were obtained and synthetic 2-D images were generated. CAD analysis was submitted and interpreted. COMPARISON: April 25. 2022, 2018, and 2016. BREAST PARENCHYMAL COMPOSITION: Not Dense: The breasts are almost entirely fatty FINDINGS: There are multiple, bilateral, circumscribed nodules/masses, a benign finding. No suspicious masses are seen. The calcifications in question mostly have an appearance suggesting they are dystrophic. However, some of them are amorphous and punctate. Some are fine and pleomorphic in appearance. These span a distance of 14 mm. These are located at approximately 1:00 in the anterior depth. No unexplained architectural distortion is seen. There are no skin or nipple abnormalities identified. There is no adenopathy seen on the images submitted. IMPRESSION: Calcifications as described for which stereotactic/tomographic guided core biopsy is recommended. BI-RADS 4 - Suspicious for malignancy. Tissue diagnosis is recommended. Reviewed, dictated and finalized at location C. Y SEWER IMPRESSION: Calcifications as described for which stereotactic/tomographic guided core biop sy is recommended. BI-RADS 4 - Suspicious for malignancy. Tissue diagnosis is recommended.
== END 2025-06-18 08:18 | disposition home or self-care (01) ==
LOC: MICIMG 08:18
PROVIDERS: PCP Family Medicine; Visit Provider Family Medicine
DX: R92.1 Mammographic calcification found on diagnostic imaging of breast (principal)
CPT/HCPCS: 77061; 77065; G0279